=== PATIENT | male | born 1945 | race Caucasian/White ===

== ENCOUNTER → 2020-10-30 15:19 | Outpatient (CLI) | payer MEDICARE, OTHER, SELFPAY | PROVIDERS: Visit Provider Specialist | DX: N39.0 Urinary tract infection, site not specified (principal); C61 Malignant neoplasm of prostate; R31.9 Hematuria, unspecified; N32.3 Diverticulum of bladder; Z79.899 Other long term (current) drug therapy | CPT/HCPCS: 51798; 81002; 87086; 96372; 96402; 99213; J0897; J9217 ==

== ENCOUNTER → 2020-12-13 13:45 | Outpatient (CLI) | payer MEDICARE, OTHER, SELFPAY | PROVIDERS: Visit Provider Physician Assistant | DX: R30.9 Painful micturition, unspecified (principal) | CPT/HCPCS: 87077; 87086; 87186 ==

== ENCOUNTER → 2021-03-14 14:18 | Outpatient (CLI) | payer MEDICARE, OTHER, SELFPAY ==
[2021-03-14 15:02] LABS: Appearance Urine UA SL CLOUDY; Bilirubin Urine UA NEGATIVE (NEGATIVE); Color Urine UA YELLOW; Glucose Urine UA NEGATIVE (Negative); Ketones Urine UA NEGATIVE (NEGATIVE); Leukocyte Esterase Urine UA 1+ (NEGATIVE); Nitrite Urine UA NEGATIVE (Negative); Occult Blood Urine UA 3+ (Negative); Protein Urine UA TRACE (Negative); Specific Gravity Urine UA 1.015 (1.000-1.035); Urobilinogen Urine UA 0.2 E.U./dL (0.2); pH Urine UA 7.5 (4.5-8.0)
[2021-03-14 16:30] LABS: Amorphous Sediment Urine 1+; Bacteria Urine Few (2-10); Culture Indicated Urine Specimen Cultured; RBC Urine 30-100/HPF (0-5/HPF); Squamous Epithelial Cell Urine 0-1 /HPF (0-5/HPF); WBC Urine 10-30/HPF (0-5/HPF)
== END ==
PROVIDERS: Referring Provider Specialist; Visit Provider Specialist
DX: R30.0 Dysuria (principal)
CPT/HCPCS: 81001; 87086

== ENCOUNTER → 2021-08-08 11:23 | Outpatient (CLI) | payer MEDICARE, OTHER, SELFPAY ==
[2021-08-08 11:58] LABS: COVID19 -Nasal RAPID Negative (Negative)
== END ==
PROVIDERS: Visit Provider Specialist
DX: Z20.822 Contact with and (suspected) exposure to COVID-19 (principal)
CPT/HCPCS: 87635

== ENCOUNTER 2021-08-11 11:50 | Day surgery (SDC) | payer MEDICARE, OTHER, SELFPAY ==
[2021-08-06 12:56] VITALS: BMI 24.5
[2021-08-11] VITALS (10 sets, daily range): BP systolic 104–169; BP diastolic 58–87; PULSE 72–89; RESP 9–17; TEMP 36.4–36.7; O2SAT 94–99; BMI 24.5
[2021-08-11] MEDS: LACTATED RINGERS 1,000 ML 42 ML IV (12:43)
[2021-08-11] MEDS: ACETAMINOPHEN IV 1,000 MG/100 ML VIAL 400 MG IV (13:43)
[2021-08-11] MEDS: AMPICILLIN/SULBACTAM 3 GM 3 GM in SODIUM CHLORIDE 0.9% 100 ML IV (13:48)
--- NOTE | 2021-08-11 14:50 | P.OP.PRE_ITS ---
Pre-operative Note COVID-19 COVID-19 status: Negative Result date/Date tested (Pos, Neg/Pending): 08/08/21 Criteria for continued procedure: Expected advancement of disease process, Possibility delay results in more complex future surgery or treatment, Increased loss of function, Deterioration of the patient's condition or overall health, Delay expected to result in less-positive ultimate med/surg outcome and Non- surgical alternatives not available or appropriate per current SOC Interval Note History & Physical reviewed/Exam performed by Physician: Yes Changes to H&P: No
[2021-08-11] MEDS: GENTAMICIN 240 MG in SODIUM CHLORIDE 0.9% 100 ML 106 ML IV (15:47)
--- NOTE | 2021-08-11 16:22 | SUR.OPER ---
Lithotomy on padded OR bed, head on pillow, arms secured on padded arm boards at <90 degrees abduction. Legs secured in padded yellow fins stirrups.
[2021-08-11] MEDS: BUPIVACAINE LIPOSOME 266 MG/20 ML VIAL INJ (16:25)
[2021-08-11] MEDS: BUPIVACAINE 0.5% W/ EPI (PF) 30 ML VIAL INJ (16:30)
[2021-08-11] MEDS: VANCOMYCIN 1,000 MG VIAL 1000 MG TOP (16:31)
[2021-08-11] MEDS: HYDROGEN PEROXIDE 473 ML SOLUTION 60 ML TOP (16:31)
[2021-08-11] MEDS: SODIUM CHLORIDE 0.9% 1,000 ML, GENTAMICIN 80 MG IRR (16:32)
--- NOTE | 2021-08-11 17:41 | PM.OP.1 ---
Operative Date/Time/Diagnoses Date of procedure: 08/11/21 Time of procedure: 17:41 Pre-op diagnosis: 1. Cuff erosion-artificial urinary sphincter. 2. History of E coli UTI. 3. Implant dysfunction. Post-op diagnosis: same Procedure & Clinicians Procedure: 1. Explantation AMS 800 artificial urinary sphincter Same procedure as scheduled: Yes Indications: 1. Urethral cuff erosion-artificial urinary sphincter. 2. History of E coli UTI. 3. Implant dysfunction. Surgeon: Umair Sterling [employer] Officer: Keerthi Cedeno Anesthesia Type: General and Local (1.33% Exparel. 0.5% Marcaine with epinephrine.) Operative Notes Findings: Small amount of brownish fluid in the vicinity of the into retropubic reservoir the tubing was encased against the posterior aspect to the right pubis and reservoir was not the tip of the index finger could reach over and behind the pubis. The site was copiously irrigated with 3 different solutions as follows: 1. Vancomycin plus gentamicin. 2. Hydrogen peroxide. 3. Betadine solution. Typical adams-white somewhat shy and encasement of pump and tubing. When the bulbar cuff was visualized via the perineal incision, immediately obvious the urethra at approximately 12 mm longitudinal erosion lying beneath the cuff. All surgical sites were copiously irrigated with the 3 step solution. Closure Type: primary Specimen(s): none sent (Cuff, tubing, and scrotal pump of the AUS system (the reservoir was abandoned).) Applied: catheter (Fourteen Turkish 2 way Magana catheter gravity drainage.) Estimated Blood Loss (mL): 5 Procedure in detail: Patient was positioned supine was administered general anesthetic. He was then repositioned in semilithotomy and the lower abdomen, genitalia, and groin were then prepped and draped in sterile fashion. A 14 Turkish Magana catheter was inserted in the bladder after cycling the device to empty the cuff. The balloon was then inflated to 10 cc and placed to gravity drainage after obtaining a urine specimen and draining bladder contents completely. Next local anesthetic was utilized to infiltrate the midline perineal raphae. A vertical incision was made at this site. Blunt and cautery dissection were then utilized to divide the midline structures down to the level of the palpable urethral cuff. Findings as described above. The eyelet loop was cut and the cuff was removed from around the urethra. Neck the skin overlying and existing, well-healed incision over the right lateral pubic margin was also infiltrated with local anesthetic. Transverse incision was made in the skin. The subcutaneous fat and Marietta's fascia were then divided using 1, and cautery dissection. The 2 sets of tubing were identified and cleared. Dissection was carried out down or toward the scrotum with gentle application traction until the pump was freed and then removed. The sphincteric cuff was excised the perineal incision and the tubing was brought up from there as well. The cuff in the bulbar pump were submitted for routine culture and sensitivity. Remainder of the tumor was excised and submitted as well. Next a meticulous dissection using blunt cautery sharp dissection was undertaken to trying trace the course of the reservoir with findings as described above intraoperative decision was made to ligate the tubing with 0 Ticron and leave a small length after inflating the balloon to approximately 25 cc for later identification if necessary. All wounds were copiously irrigated with the 3. Solution process. The right inguinal incision was closed by 1st reapproximating the rectus fascia with a [id number] 0 Vicryl. Marietta's fascia was reapproximated using 2-0 Vicryl in a similar fashion. Findings skin was reapproximated using 4-0 Monocryl in a subcuticular fashion. A small segment a Tegaderm was tailored applied over the right inguinal incision and over that a small Op site incision was applied for transparent Bioclusive finished. Next, perineal body was then closed in the midline using running 2-0 Monocryl. The same containing sclera was closed using the same suture intake pre 5 Kennye, the skin was were approximated utilizing running subcuticular technique with 4-0 Monocryl. The same fashion as right inguinal incision, a segment a Telfa was Leeanna in applied to the incision line over this a be him up site was a applied for a transparent, Bioclusive finish. The patient was then repositioned in supine, was awakened, was transferred to a gurney, and then was transferred to recovery in stable condition. Complications: none Post-operative Condition: stable Plan for aftercare: Discharge home.
--- NOTE | 2021-08-11 19:06 | SUR.PHASEII ---
1855 hrs: Pt has two abrasions, aprox 4 inches long, not currently bleeding, on right bicep, the result of scratching himself with fingernails while awakening from anesthesia. Washed with soap and water. Room mate advised to apply antibiotic ointment upon return home.
== END 2021-08-11 19:00 | disposition home or self-care (01) | DRG 672 ==
LOC: AC 17:35 → OR 08-26 10:59
PROVIDERS: Referring Provider Specialist; Visit Provider Specialist
PROC: (CPT 53446; principal; 2021-08-11 13:15)
DX: T83.111A Breakdown (mechanical) of implanted urinary sphincter, initial encounter (principal); T83.719A Erosion of other prosthetic materials to surrounding organ or tissue, initial encounter; N21.0 Calculus in bladder; N32.3 Diverticulum of bladder; Z85.46 Personal history of malignant neoplasm of prostate; Z87.891 Personal history of nicotine dependence; Z20.822 Contact with and (suspected) exposure to COVID-19
CPT/HCPCS: 53446; 87070; 87075; 87086; 87176; 87205; 87635; C9803; C9290; J0131; J0295; J1200; J2250; J2704; J3010

== ENCOUNTER → 2021-08-20 16:55 | Outpatient (CLI) | payer MEDICARE, OTHER, SELFPAY ==
[2021-08-20 17:49] LABS: BUN Creatinine Ratio 16.8 (6-22); Blood Urea Nitrogen 16 mg/dL (9-20); Calcium 8.3 mg/dL (8.4-10.2); Carbon Dioxide 25 mmol/L (22-32); Chloride 104 mmol/L (98-107); Estimated Glomerular Filt Rate > 60.0 mL/min (>60); Glucose 112 mg/dL (80-110); HEMOLYSIS < 15 (0-50); Potassium 4.5 mmol/L (3.4-5.1); Sodium 134 mmol/L (137-145)
[2021-08-20 18:23] LABS: Prostate Specific Antigen < 0.064 ng/mL (0.10-4.00)
== END ==
PROVIDERS: Referring Provider Specialist; Visit Provider Specialist
DX: Z01.812 Encounter for preprocedural laboratory examination (principal); R31.9 Hematuria, unspecified; N39.0 Urinary tract infection, site not specified; N40.0 Benign prostatic hyperplasia without lower urinary tract symptoms; T83.111A Breakdown (mechanical) of implanted urinary sphincter, initial encounter; R32 Unspecified urinary incontinence; Z85.46 Personal history of malignant neoplasm of prostate
CPT/HCPCS: 36415; 51703; 80048; 84153; 87086; 99215

== ENCOUNTER → 2021-09-01 10:13 | Outpatient (CLI) | payer MEDICARE, OTHER, SELFPAY ==
--- NOTE | 2021-09-01 10:17 | DI.RAD.S_ITS ---
PROCEDURE: [place] VOIDING CYSTOURETHROGRAM INDICATIONS: cuff erosion of artificial urinary sphincter TECHNIQUE: The bladder was filled with iodinated contrast by gravity pressure through a Magana catheter. Fluoroscopic filming was then performed of the bladder, ureteral and renal regions, and urethra during patient voiding. COMPARISON: [facility] [place], [place], CT PELVIS WITH CONTRAST, 08/21/2021, 13:15. FINDINGS: Laundry Folder view: No suspicious abdominal calcifications. Clip in the left pelvis. History of prostatectomy. Magana catheter is in place. Bladder: Bladder has a trabeculated appearance. There is a small bladder diverticulum measuring 2.3 cm. Right pelvis reservoir is noted. Urethra: There is leakage of contrast at the bulbar urethra. This is also visualized on physical exam emanating from the inferior aspect of the midline surgical site. The skin is indurated. Subsequently the bladder was drained in the standing position. The contrast preferentially leaks from the urethra rather than the Magana catheter. IMPRESSION: Leakage of contrast from the bulbar urethra. This is at the presumed site of prior urethral cuff. Of note the instilled contrast preferentially drains from the urethra leak rather than the Magana catheter tubing. Comment: Findings were discussed with JEMIMA Juan at the time of dictation. Dictated by: Daniel Escobar M.D. on 09/01/2021 at 11:58 Approved by: Daniel Escobar M.D. on 09/01/2021 at 12:08
== END ==
PROVIDERS: Referring Provider Specialist; Visit Provider Specialist
DX: T83.111A Breakdown (mechanical) of implanted urinary sphincter, initial encounter (principal); T83.191A Other mechanical complication of implanted urinary sphincter, initial encounter; R32 Unspecified urinary incontinence; N36.0 Urethral fistula
CPT/HCPCS: 52000; 74455; 96372; J0694

== ENCOUNTER → 2021-09-22 12:59 | Outpatient (CLI) | payer MEDICARE, OTHER, SELFPAY ==
--- NOTE | 2021-09-22 13:00 | DI.RAD.S_ITS ---
PROCEDURE: [place] VOIDING CYSTOURETHROGRAM INDICATIONS: Cysto Urethral Fistula TECHNIQUE: The bladder was filled with iodinated contrast by gravity pressure through a Magana catheter. Fluoroscopic filming was then performed of the bladder, ureteral and renal regions, and urethra during patient voiding. COMPARISON: [place], [place] VOIDING CYSTOURETHROGRAM, 09/01/2021, 11:01. FINDINGS: Quoter view: No suspicious abdominal calcifications. Magana catheter is present. Clip in the left pelvis. Bladder: Bladder is small with a trabeculated appearance and several diverticuli. No vesicoureteral reflux. No contrast extravasation is demonstrated. Urethra: Magana catheter tubing is present. No urethral leak demonstrated. Oblique view was also acquired. IMPRESSION: No ureteral leak is demonstrated on imaging. However, after evacuation of the urinary bladder the skin is evaluated at the site of prior leak. There is trace fluid consistent with a tiny leak. This was not present at the commencement of the exam and is in keeping with the patient's stated history of persistent leak. Dictated by: Daniel Escobar M.D. on 09/22/2021 at 14:00 Approved by: Daniel Escobar M.D. on 09/22/2021 at 14:05
== END ==
PROVIDERS: Referring Provider Specialist; Visit Provider Specialist
DX: T83.111A Breakdown (mechanical) of implanted urinary sphincter, initial encounter (principal)
CPT/HCPCS: 74455

== ENCOUNTER → 2021-10-24 08:44 | Outpatient (CLI) | payer MEDICARE, OTHER, SELFPAY ==
--- NOTE | 2021-10-24 08:46 | DI.RAD.S_ITS ---
PROCEDURE: [place] VOIDING CYSTOURETHROGRAM INDICATIONS: cuff erosion of artificial urinary sphincter TECHNIQUE: The bladder was filled with iodinated contrast by gravity pressure through a Magana catheter. Fluoroscopic filming was then performed of the bladder, ureteral and renal regions, and urethra during patient voiding. COMPARISON: [facility], [place] VOIDING CYSTOURETHROGRAM, 09/22/2021, 13:26. [facility], [place] VOIDING CYSTOURETHROGRAM, 09/01/2021, 11:01. FINDINGS: Typesetter Perforator Operator view: No suspicious abdominal calcifications. Bowel gas pattern is normal. Bladder: The bladder is diminished in size. Numerous bladder trabecula and several bladder diverticuli are noted. Findings are stable compared to prior exams. No vesicoureteral reflux. No contrast extravasation. Urethra: Magana catheter tubing is present. The surrounding urethral lumen is normal in morphology. IMPRESSION: No ureteral leak demonstrated. Dictated by: Rosalba Farr MD, PhD on 10/24/2021 at 12:13 Approved by: Rosalba Farr MD, PhD on 10/24/2021 at 12:15
== END ==
PROVIDERS: PCP Family Medicine; Referring Provider Specialist; Visit Provider Specialist
DX: T83.111 Breakdown (mechanical) of implanted urinary sphincter (principal); R32 Unspecified urinary incontinence; N32.89 Other specified disorders of bladder; N32.3 Diverticulum of bladder
CPT/HCPCS: 74430

== ENCOUNTER → 2022-04-22 11:21 | Outpatient (CLI) | payer MEDICARE, OTHER, SELFPAY | PROVIDERS: PCP Family Medicine; Referring Provider Specialist; Visit Provider Specialist | DX: M81.8 Other osteoporosis without current pathological fracture (principal); T38.7X5A Adverse effect of androgens and anabolic congeners, initial encounter | CPT/HCPCS: 77080 ==

== ENCOUNTER → 2022-04-30 10:33 | Outpatient (CLI) | payer MEDICARE, OTHER, SELFPAY | PROVIDERS: PCP Family Medicine; Visit Provider Specialist | DX: N39.0 Urinary tract infection, site not specified (principal); N36.42 Intrinsic sphincter deficiency (ISD); R32 Unspecified urinary incontinence; Z87.440 Personal history of urinary (tract) infections; Z85.46 Personal history of malignant neoplasm of prostate | CPT/HCPCS: 51798; 81002; 87077; 87086; 87186; 96372; 96402; 99215; J0897; J9217 ==

== ENCOUNTER → 2022-10-28 14:21 | Outpatient (CLI) | payer MEDICARE, OTHER, SELFPAY | PROVIDERS: PCP Family Medicine; Visit Provider Specialist | DX: N39.0 Urinary tract infection, site not specified (principal); N36.42 Intrinsic sphincter deficiency (ISD); R32 Unspecified urinary incontinence; Z85.46 Personal history of malignant neoplasm of prostate; Z87.440 Personal history of urinary (tract) infections | CPT/HCPCS: 51798; 81002; 87077; 87086; 87186; 96372; 96402; 99215; J0897; J9217 ==

== ENCOUNTER 2023-01-18 12:24 | Day surgery (SDC) | payer MEDICARE, OTHER, SELFPAY ==
[2022-12-28 10:52] VITALS: BMI 25.8
[2023-01-18] VITALS (14 sets, daily range): BP systolic 155–200; BP diastolic 85–108; PULSE 64–84; RESP 13–18; TEMP 36.1–36.2; O2SAT 90–99; BMI 25.8
[2023-01-18] MEDS: LACTATED RINGERS 1,000 ML 21 ML IV ×2 (13:17→15:09)
--- NOTE | 2023-01-18 13:48 | PM.PREOP ---
Pre-operative Note COVID-19 Criteria for continued procedure: Expected advancement of disease process, Possibility delay results in more complex future surgery or treatment, Deterioration of the patient's condition or overall health, Delay expected to result in less-positive ultimate med/surg outcome and Non-surgical alternatives not available or appropriate per current SOC Interval Note History & Physical reviewed/Exam performed by Physician: Yes Changes to H&P: No
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
[2023-01-18] MEDS: CEFAZOLIN 2 GM/100 ML PREMIX 100 ML IV (14:40)
--- NOTE | 2023-01-18 14:58 | SUR.OPER ---
Lithotomy on padded OR bed, head on pillow, arms secured on padded arm boards at <90 degrees abduction. Legs secured in padded yellow fins stirrups.
[2023-01-18] MEDS: TRIAMCINOLONE 40 MG/ML VIAL IM (15:04)
--- NOTE | 2023-01-18 15:58 | PM.OP.1 ---
Operative Date/Time/Diagnoses Date of procedure: 01/18/23 Time of procedure: 15:30 Pre-op diagnosis: 1. Bulbar urethral stricture. 2. Recurrent UTI. 3. Urinary incontinence. 4. Known right posterior bladder wall diverticula. Post-op diagnosis: other (1. Bladder calculi x3. 2. Bladder neck contracture. ) Procedure & Clinicians Procedure: 1. Cystoscopy/laser resection of bladder neck contracture. 2. Cystoscopy/laser resection of bulbar urethral stricture. 3. Cystoscopy/injection Kenalog. 4. Cystoscopy/laser litholapaxy x3. Same procedure as scheduled: No (Laser litholapaxy x3) Indications: 1. Bulbar urethral stricture. 2. Recurrent UTI. 3. Urinary incontinence Surgeon: Umair Sterling Click Yes if Unassisted: Yes Anesthesia Type: General Operative Notes Findings: 1. Penile urethra-mildly stenotic distally requiring gentle dilation van sound. 2. Bulbar urethra-dense stricture from 3-9 posteriorly. 3. External sphincter-hypovascular fixed and gaping consistent with radionecrosis. 4. Bladder neck-hypovascular and contracted. Changes consistent with radionecrosis. 5. Bladder- calculi x3. Mild inflammatory changes. Right posterior wall bladder diverticulum. Closure Type: not applicable Specimen(s): other (Stone fragments.) Applied: catheter (20 Iraqi silicone catheter.) Estimated Blood Loss (mL): 2 Blood products transfused: none Procedure in detail: The patient was positioned supine was administered general anesthesia he was then repositioned in semi lithotomy and lower abdomen, genitalia, and groin were then prepped and draped in sterile fashion. The laser endoscope was then passed the lower urinary tract with findings as described above. With gentle pressure the scope was advanced beyond the bulbar segment with mild difficulty. The same was encountered at the bladder neck. Findings otherwise as above. A 200 micron fiber was requested. All operating room personnel and patient were fitted with laser safety eyewear. Laser was then used to incise the bladder neck at 3 and 9 the intervening tissue posteriorly was laser excised. The settings on the laser were then changed to stone treatment in the above scribed calculi were fragmented successively with good result. The scope was then withdrawn and the bulbar stricture was then resected from 3 to 9 posteriorly. Hemostasis was excellent. 40 mg of Kenalog were then injected at the lateral aspects of the bladder neck with the injection needle in equal portions. Scope was then advanced more proximally and using the Ellik evacuator small amount of clot and stone fragments were irrigated clear. Final inspection revealed no residual stone fragments within the bladder or diverticulum. The bladder was then left partially filled and the laser endoscope was removed. A 20 Iraqi silicone catheter was then advanced in the lower urinary tract, the balloon inflated 10 cc, and then connected to gravity drainage. The patient was then repositioned supine, was awakened, transferred to [facility], and transported recovery in stable condition Complications: none Post-operative Condition: stable Disposition: PACU Plan for aftercare: Discharge home.
[2023-01-18] MEDS: HYDRALAZINE 20 MG/ML VIAL 5 MG IV ×2 (16:04→16:15)
--- NOTE | 2023-01-18 16:12 | SUR.PHASEI ---
Patient arrived from the OR with several bloody scratches on left forearm. Per report patient started scratching his arm during transport to PACU. Sites were cleaned with saline and gauze and Allevyn dressing applied. See photos.
--- NOTE | 2023-01-18 16:14 | SUR.PHASEI ---
Patient declined pain medication.
--- NOTE | 2023-01-18 16:26 | SUR.PHASEI ---
Addendum entered by Melissa Kelly R.N. 01/18/23 16:28: See nurses note from Nando ONOFRE. Original Note:
[2023-01-18] MEDS: ACETAMINOPHEN 325 MG TABLET 650 MG PO (16:29)
--- NOTE | 2023-01-18 16:32 | SUR.PHASEI ---
Discussed BP with Dr. Sterling-157/85. Patient may discharge per MD.
--- NOTE | 2023-01-18 17:57 | SUR.PHASEII ---
Discharge instructions with leg bag teaching done. Pt able to empty leg bag himself in bathroom. Pt with capacity for only one bag. Updated Dr Sterling. Teaching limited by patient severe difficulty to hear and hearing aids that do not work. Pt asked appropriate questions and stated reasons to all MD and confirmed where MD phone number was.
[2023-01-27 20:13] LABS: Ca oxalate dihydrate 20 % (.); Ca oxalate monohydr 80 % (.); Size 8x6 mm (.)
== END 2023-01-18 17:55 | disposition home or self-care (01) ==
PROVIDERS: PCP Family Medicine; Referring Provider Specialist; Visit Provider Specialist
PROC: (CPT 52317; principal; 2023-01-18 13:45)
DX: N35.912 Unspecified bulbous urethral stricture, male (principal); N32.3 Diverticulum of bladder; R32 Unspecified urinary incontinence; Z87.440 Personal history of urinary (tract) infections
CPT/HCPCS: 52317; 52276; 82365; C1771; J0360; J0690; J1100; J2405; J2704; J3010

== ENCOUNTER → 2023-03-10 13:44 | Outpatient (CLI) | payer MEDICARE, OTHER, SELFPAY | PROVIDERS: PCP Family Medicine; Visit Provider Specialist | DX: N35.919 Unspecified urethral stricture, male, unspecified site (principal); N36.42 Intrinsic sphincter deficiency (ISD); R32 Unspecified urinary incontinence; Z87.440 Personal history of urinary (tract) infections; Z85.46 Personal history of malignant neoplasm of prostate; N32.3 Diverticulum of bladder; Z87.448 Personal history of other diseases of urinary system; Z68.25 Body mass index [BMI] 25.0-25.9, adult | CPT/HCPCS: 51798; 81002; 87077; 87086; 87186; 99215 ==

== ENCOUNTER → 2023-04-27 14:04 | Outpatient (CLI) | payer MEDICARE, OTHER, SELFPAY | PROVIDERS: PCP Family Medicine; Visit Provider Specialist | DX: N36.42 Intrinsic sphincter deficiency (ISD) (principal); R31.9 Hematuria, unspecified; R32 Unspecified urinary incontinence; N35.919 Unspecified urethral stricture, male, unspecified site; N36.0 Urethral fistula; N32.3 Diverticulum of bladder; Z87.440 Personal history of urinary (tract) infections; Z85.46 Personal history of malignant neoplasm of prostate | CPT/HCPCS: 51798; 81002; 87077; 87086; 87186; 96372; 96402; 99214; J0897; J9217 ==

== ENCOUNTER → 2023-10-28 13:44 | Outpatient (CLI) | payer MEDICARE, OTHER, SELFPAY | PROVIDERS: PCP Family Medicine; Visit Provider Specialist | DX: N36.42 Intrinsic sphincter deficiency (ISD) (principal); N39.0 Urinary tract infection, site not specified; R39.9 Unspecified symptoms and signs involving the genitourinary system; N32.3 Diverticulum of bladder; R32 Unspecified urinary incontinence; Z85.46 Personal history of malignant neoplasm of prostate; Z87.440 Personal history of urinary (tract) infections | CPT/HCPCS: 51798; 81002; 87077; 87086; 87186; 96372; 96402; 99215; J0897; J9217 ==